=== PATIENT | female | born 1985 | race Two or more races ===

== ENCOUNTER 2020-09-23 05:02 | Inpatient (IN) | payer SELFPAY ==
[~2020-09-23] VITALS: Ht 154.9 cm; Wt 64.9 kg
[~2020-09-23 05:02] MED LIST: PREN-2 PO
[2020-09-23] MEDS ORDERED: IV RINGERS,LACTATED 1000ML 1,000 ML IV PRN (05:15)
[2020-09-23] MEDS ORDERED: ACETAMINOPHEN 325 MG TABLET. PO PRN ×2 (05:15→05:45)
[2020-09-23 05:36] LABS: BILIRUBIN,URINE NEGATIVE (NEG); CLARITY,URINE CLEAR; COLOR,URINE YELLOW; NITRITE,URINE NEGATIVE (NEG); PH,URINE 8.5 (<5.0-8.0); PROTEIN,URINE 30 mg/dL (NEG-TRACE)
[2020-09-23 05:42] LABS: BARBITURATES NEG (NEG); BENZODIAZEPINES NEG (NEG); CANNABINOIDS NEG (NEG); COCAINE NEG (NEG); METHADONE NEG (NEG); OPIATES NEG (NEG); PHENCYCLIDINE NEG (NEG)
[2020-09-23] MEDS ORDERED: BUTORPHANOL 2 MG/ML VIAL. IVP PRN ×2 (05:45)
[2020-09-23] MEDS ORDERED: TERBUTALINE 1 MG/ML VIAL. SQ PRN (05:45)
[2020-09-23] MEDS ORDERED: LIDOCAINE 1% PF 30 ML VIAL. INJ PRN (05:45)
[2020-09-23] MEDS ORDERED: OXYTOCIN 30 UNIT/500 ML PREMIX 500 ML IV PRN ×3 (05:45→13:30)
[2020-09-23] MEDS ORDERED: 0.9 % SODIUM CHLORIDE 10 ML DISP.SYRIN. IV PRN ×2 (05:45→13:30)
[2020-09-23 05:48] LABS: AMPHETAMINE/METHAMPHETAMINE NEG (NEG)
[2020-09-23] MEDS: IV RINGERS,LACTATED 1000ML 1,000 ML IV SCH ×3 (05:49→21:45)
[2020-09-23 05:51] LABS: BACTERIA,URINE FEW /HPF (0-FEW); RBC,URINE 0 /HPF (0-2)
[2020-09-23 06:33] LABS: BASO # 0.1 x10^3/uL (0.0-0.2); BASO % 1 % (0-3); EOS # 0.6 x10^3/uL (0.0-0.7); EOS % 8 % (0-3); HEMATOCRIT 38.4 % (36.0-47.0); HEMOGLOBIN 12.7 g/dL (12.0-15.5); LYMPH # 2.2 x10^3/uL (1.0-4.8); LYMPH % 29 % (24-48); MEAN CORPUSCULAR HEMOGLOBIN 30 pg (25-35); MEAN CORPUSCULAR HGB CONC 33 g/dL (31-37); MEAN CORPUSCULAR VOLUME 90 fL (79-100); MONO # 0.6 x10^3/uL (0.0-1.1); MONO % 8 % (0-9); NEUT # 4.3 x10^3/uL (1.8-7.7); NEUT % 55 % (31-73); PLATELET COUNT 269 x10^3/uL (140-400); RED BLOOD COUNT 4.27 x10^6/uL (3.50-5.40); RED CELL DISTRIBUTION WIDTH 14.1 % (11.5-14.5); WHITE BLOOD COUNT 7.8 x10^3/uL (4.0-11.0)
--- NOTE | 2020-09-23 07:51 | PDOC1 ---
PRACTICE DIRECTOR H&P Date of Admission: Date of Admission: Sep 23, 2020 at 05:02 History of Present Illness: EDC: 09/26/20 LMP: unk 35y @ 39.4 by 15wk u/s presents with ctxs. The pt presented dilated to 3 cm and regular ctxing. She was admitted for labor. Her cervical dilation has progressed to 4 cm on the latest exam. The pt signed a BTL consent on 08/28/20. The consent has not matured (less than 30 days). We have previously discussed performing the BTL after 6wks or alternatives like Mirena/Nexplanon. PMH: Denies PSH: Denies Meds: PNV, Fe All: Posaconazole, Moxeza, Ibuprofen OBHx: TSVD x 3 SH: no tob, no EtOH FH: noncontributory Medications: Meds: Current Medications Medications (Trade) Dose Ordered Sig/Tio Route PRN Reason Start Time Stop Time Status Last Admin Dose Admin Ringer's Solution 1,000 ml @ 125 mls/hr Q8H IV 09/23/20 05:45 09/23/20 06:21 Butorphanol Tartrate (Stadol) 1 mg PRN Q1HR PRN IVP mild to moderate labor pain 09/23/20 05:45 09/23/20 07:39 Allergies: Coded Allergies: ibuprofen (Verified Allergy, Intermediate, Hives, 02/15/16) moxifloxacin (Verified Allergy, Intermediate, 09/23/20) posaconazole (Verified Allergy, Intermediate, 09/23/20) Physical Exam: Vital Signs: Vital Signs Date Time Temp Pulse Resp B/P (MAP) Pulse Ox O2 Delivery O2 Flow Rate FiO2 09/23/20 07:39 20 97 PE: GENERAL: No apparent distress. Alert and oriented. HEENT: Head normocephalic, atraumatic. NECK: Supple LUNGS: Clear to auscultation. HEART: RRR, S1, S2 present, pulses intact ABDOMEN: Soft, positive bowel sounds. EXTREMITIES: No cyanosis or edema. NEUROLOGIC: Normal speech, normal tone PSYCHIATRIC: Normal affect, normal mood. SKIN: No ulceration. FHT: 150s +acels/no decels/mLTV [place]: 3 min SVE: 4/80/-3 Labs: Laboratory Tests Test 09/23/20 05:20 09/23/20 05:25 09/23/20 06:10 Urine Collection Type Unknown Urine Color Yellow Urine Clarity Clear Urine pH 8.5 (<5.0-8.0) Urine Specific [place] 1.015 (1.000-1.030) Urine Protein 30 mg/dL (NEG-TRACE) Urine Glucose (UA) Negative mg/dL (NEG) Urine Ketones (Stick) 40 mg/dL (NEG) Urine Blood Negative (NEG) Urine Nitrite Negative (NEG) Urine Bilirubin Negative (NEG) Urine Urobilinogen Dipstick 1.0 mg/dL (0.2 mg/dL) Urine Leukocyte Esterase Trace (NEG) Urine RBC 0 /HPF (0-2) Urine WBC 1-4 /HPF (0-4) Urine Squamous Epithelial Cells Mod /LPF Urine Bacteria Few /HPF (0-FEW) Urine Mucus Slight /LPF Urine Opiates Screen Neg (NEG) Urine Methadone Screen Neg (NEG) Urine Barbiturates Neg (NEG) Urine Phencyclidine Screen Neg (NEG) Urine Amphetamine/Methamphetamine Neg (NEG) Urine Benzodiazepines Screen Neg (NEG) Urine Cocaine Screen Neg (NEG) Urine Cannabinoids Screen Neg (NEG) Urine Ethyl Alcohol Neg (NEG) SARS-CoV-2 Antigen (Rapid) Negative (NEGATIVE) White Blood Count 7.8 x10^3/uL (4.0-11.0) Red Blood Count 4.27 x10^6/uL (3.50-5.40) Hemoglobin 12.7 g/dL (12.0-15.5) Hematocrit 38.4 % (36.0-47.0) Mean Corpuscular Volume 90 fL (79-100) Mean Corpuscular Hemoglobin 30 pg (25-35) Mean Corpuscular Hemoglobin Concent 33 g/dL (31-37) Red Cell Distribution Width 14.1 % (11.5-14.5) Platelet Count 269 x10^3/uL (140-400) Neutrophils (%) (Auto) 55 % (31-73) Lymphocytes (%) (Auto) 29 % (24-48) Monocytes (%) (Auto) 8 % (0-9) Eosinophils (%) (Auto) 8 % (0-3) H Basophils (%) (Auto) 1 % (0-3) Neutrophils # (Auto) 4.3 x10^3/uL (1.8-7.7) Lymphocytes # (Auto) 2.2 x10^3/uL (1.0-4.8) Monocytes # (Auto) 0.6 x10^3/uL (0.0-1.1) Eosinophils # (Auto) 0.6 x10^3/uL (0.0-0.7) Basophils # (Auto) 0.1 x10^3/uL (0.0-0.2) Laboratory Tests 09/23/20 06:10 Laboratory Tests 09/23/20 06:10 Assessment & Plan: A/P 35y @ 39.4 by 15wk u/s 1.) Active labor expectant management 2.) AMA - presented to [facility] too late for quad, declined indxn 3.) Late entry to care - although seen previously at an unknown clinic 4.) Gap in care b/t 04/04 to 07/23 5.) TDAP given 07/23/20 6.) GERD - advised to try Pepcid OTC 7.) Fetus cat I FHT 8.) GBS neg 9.) DPS - consent signed 09/04/20, considering an interval L/S BTL 6wks after delivery STU RAMIREZ MD Sep 23, 2020 07:51
[2020-09-23] MEDS ORDERED: OXYTOCIN PREMIX 30 UNIT/500 ML NS BAG. IV ONE (13:00)
[2020-09-23] MEDS ORDERED: HYDROCORTISONE 1% TOPICAL OINTMENT 30GM TUBE. TP PRN (13:30)
[2020-09-23] MEDS ORDERED: PHENYLEPH/MINERAL OIL/PETROLAT RECTAL OINTMENT TUBE. RC PRN (13:30)
[2020-09-23] MEDS ORDERED: ZOLPIDEM 5 MG TABLET. PO PRN (13:30)
[2020-09-23] MEDS ORDERED: diphenhydrAMINE HCL 25 MG CAPSULE PO PRN (13:30)
[2020-09-23] MEDS ORDERED: MAG HYDROX/ALUMINUM HYD/SIMETH 30 ML ORAL.SUSP PO PRN (13:30)
[2020-09-23] MEDS ORDERED: SIMETHICONE 80 MG TAB.CHEW PO PRN (13:30)
[2020-09-23] MEDS ORDERED: IBUPROFEN 400 MG TABLET. PO PRN (13:30)
[2020-09-23] MEDS ORDERED: MAGNESIUM HYDROXIDE 2,400 MG/30 ML ORAL.SUSP. PO PRN (13:30)
[2020-09-23] MEDS ORDERED: BENZOCAINE 20% TOPICAL AEROSOL SPRAY 57GM CAN. TP PRN (13:30)
[2020-09-23] MEDS ORDERED: DOCUSATE SODIUM 100 MG CAPSULE. PO PRN (13:30)
[2020-09-23] MEDS ORDERED: MMR per PROTOCOL. MC PRN (13:30)
[2020-09-23] MEDS ORDERED: TDaP (Adacel) per PROTOCOL. MC PRN (13:30)
--- NOTE | 2020-09-23 13:36 | PDOC ---
VAGINAL DELIVERY DATE DATE: 09/23/20 TIME: 13:34 TIME Patient delivered a viable male infant over intact perineum at 1229. Wt 7 lb 14 oz. Apgars 8/9. Placenta delivered spontaneously, intact with 3VC. 2nd degree laceration repaired in nml fashion with 2'0 vicryl. Good hemostasis noted. 20 U of Pit given with IVF. EBL 100cc. WEIGHT Weight [ ] STU RAMIREZ MD Sep 23, 2020 13:36
[2020-09-23] MEDS: ACETAMINOPHEN 325 MG TABLET. PO PRN (16:00)
[2020-09-23 17:44] VITALS: BP 110/77
[2020-09-23 18:17] VITALS: BP 113/76
[2020-09-23] MEDS ORDERED: IV NORMAL SALINE 1000ML BAG 1,000 ML IV SCH (19:30)
[2020-09-23 22:30] VITALS: BP 110/72
[2020-09-23] MEDS: oxyCODONE/APAP 5/325 1 TAB TABLET PO PRN (22:56)
[2020-09-24 03:25] VITALS: BP 114/72
[2020-09-24] MEDS: IV RINGERS,LACTATED 1000ML 1,000 ML IV SCH ×3 (05:45→21:45)
[2020-09-24] MEDS: oxyCODONE/APAP 5/325 1 TAB TABLET PO PRN ×2 (06:17→23:14)
[2020-09-24 06:50] VITALS: BP 131/81
[2020-09-24 07:49] LABS: HEMATOCRIT 38.8 % (36.0-47.0); HEMOGLOBIN 12.8 g/dL (12.0-15.5); RED BLOOD COUNT 4.29 x10^6/uL (3.50-5.40); RED CELL DISTRIBUTION WIDTH 14.2 % (11.5-14.5); WHITE BLOOD COUNT 9.8 x10^3/uL (4.0-11.0)
[2020-09-24] MEDS: FERROUS SULFATE 325 MG TABLET. PO SCH ×2 (08:00→17:00)
[2020-09-24 08:17] VITALS: BP 123/84
--- NOTE | 2020-09-24 10:49 | PDOC ---
CONTACT LENS MANUFACTURER PROGRESS NOTE Date of Service: DATE: 09/24/20 TIME: 10:49 Subjective: Pt with good pain control. Jenaro PO. Voiding. Minimal lochia Objective: Vital Signs: Vital Signs Date Time Temp Pulse Resp B/P (MAP) Pulse Ox O2 Delivery O2 Flow Rate FiO2 09/23/20 07:39 20 97 09/23/20 17:44 98.2 82 110/77 (88) 98.2 09/23/20 21:58 Room Air Vital Signs Date Time Temp Pulse Resp B/P (MAP) Pulse Ox O2 Delivery O2 Flow Rate FiO2 09/24/20 08:17 98.3 63 16 123/84 (97) 97 Room Air 98.3 Labs: Laboratory Tests Test 09/24/20 07:20 White Blood Count 9.8 x10^3/uL (4.0-11.0) Red Blood Count 4.29 x10^6/uL (3.50-5.40) Hemoglobin 12.8 g/dL (12.0-15.5) Hematocrit 38.8 % (36.0-47.0) Mean Corpuscular Volume 90 fL (79-100) Mean Corpuscular Hemoglobin 30 pg (25-35) Mean Corpuscular Hemoglobin Concent 33 g/dL (31-37) Red Cell Distribution Width 14.2 % (11.5-14.5) Platelet Count 295 x10^3/uL (140-400) Laboratory Tests 09/24/20 07:20 Laboratory Tests 09/24/20 07:20 Physical Exam: GENERAL: No apparent distress. Alert and oriented. HEENT: Head normocephalic, atraumatic. NECK: Supple LUNGS: Clear to auscultation. HEART: RRR, S1, S2 present, pulses intact ABDOMEN: Soft, positive bowel sounds. EXTREMITIES: No cyanosis or edema. NEUROLOGIC: Normal speech, normal tone PSYCHIATRIC: Normal affect, normal mood. SKIN: No ulceration. FFNT below umb No C/C/E Assessment & Plan: A/P 35y PPD #1 s/p 1.) PO doing well 2.) TDAP given 07/23/20 3.) GERD 4.) Hgb 12.7 -> 12.8 5.) Cont PP care 6.) DPS - consent signed 4/8/21, considering an interval L/S BTL 6wks after delivery STU RAMIREZ MD Sep 24, 2020 10:49
[2020-09-24] MEDS: ACETAMINOPHEN 325 MG TABLET. PO PRN (11:12)
[2020-09-24] MEDS: PRENATAL MULTIVITAMIN TABLET. PO SCH (11:12)
[2020-09-24 13:19] VITALS: BP 114/79
[2020-09-24 16:45] VITALS: BP 137/76
[2020-09-24 20:00] VITALS: BP 129/85
[2020-09-25 02:00] VITALS: BP 116/76
[2020-09-25] MEDS: IV RINGERS,LACTATED 1000ML 1,000 ML IV SCH (05:45)
[2020-09-25 08:00] VITALS: BP 113/80
[2020-09-25] MEDS: FERROUS SULFATE 325 MG TABLET. PO SCH (08:00)
[2020-09-25] MEDS ORDERED: DOCU-109 PO (09:08)
[2020-09-25] MEDS ORDERED: IBUP-1060 PO (09:08)
--- NOTE | 2020-09-25 09:42 | PDOC ---
SCREW MACHINE REPAIRER PROGRESS NOTE Date of Service: DATE: 09/25/20 TIME: 09:41 Subjective: Pt with good pain control. Jenaro PO. Voiding. Minimal lochia Objective: Vital Signs: Vital Signs Date Time Temp Pulse Resp B/P (MAP) Pulse Ox O2 Delivery O2 Flow Rate FiO2 09/24/20 08:16 Room Air 09/24/20 08:17 98.3 63 16 123/84 (97) 97 98.3 Vital Signs Date Time Temp Pulse Resp B/P (MAP) Pulse Ox O2 Delivery O2 Flow Rate FiO2 09/25/20 02:00 99.5 73 18 116/76 (89) 98 Room Air 99.5 Physical Exam: GENERAL: No apparent distress. Alert and oriented. HEENT: Head normocephalic, atraumatic. NECK: Supple LUNGS: Clear to auscultation. HEART: RRR, S1, S2 present, pulses intact ABDOMEN: Soft, positive bowel sounds. EXTREMITIES: No cyanosis or edema. NEUROLOGIC: Normal speech, normal tone PSYCHIATRIC: Normal affect, normal mood. SKIN: No ulceration. FFNT below umb No C/C/E Assessment & Plan: A/P 35y PPD #2 s/p 1.) PO doing well 2.) TDAP given 07/23/20 3.) GERD 4.) Hgb 12.7 -> 12.8 5.) D/c home 6.) DPS - consent signed 09/04/20, considering an interval L/S BTL 6wks after delivery STU RAMIREZ MD Sep 25, 2020 09:42
[2020-09-25] MEDS: ACETAMINOPHEN 325 MG TABLET. PO PRN (10:00)
[2020-09-25] MEDS: PRENATAL MULTIVITAMIN TABLET. PO SCH (10:00)
--- NOTE | 2020-09-25 11:14 | DS ---
ADMISSION DIAGNOSES: 1. Intrauterine at 39 weeks and 4 days by 15-week ultrasound. 2. Active labor. 3. Advanced maternal age. 4. Late entry to care. 5. Gap in care between April 04 to July 23. 6. Gastroesophageal reflux disease. 7. Desires permanent sterilization, but consent not matured. 8. GBS negative. DISCHARGE DIAGNOSES: 1. Intrauterine at 39 weeks and 4 days by 15-week ultrasound. 2. Active labor. 3. Advanced maternal age. 4. Late entry to care. 5. Gap in care between April 04 to July 23. 6. Gastroesophageal reflux disease. 7. Desires permanent sterilization, but consent not matured. 8. GBS negative. PROCEDURE: Spontaneous vaginal delivery. BRIEF HOSPITAL COURSE: The patient is a 35-year-old 4, para 3-0-0-3, who presented to labor and delivery at 39 weeks and 4 days by 15-week ultrasound with contractions. The patient is found to be 3 cm dilated and regular contractions. The patient was subsequently admitted. The patient progressed to 4 cm after some time. The patient ultimately delivered by vaginal delivery. See delivery note for full detail. By day #2, the patient was meeting all discharge criteria and was subsequently discharged home. Of note, the patient's hemoglobin on admission was 12.7 and after delivery was 12.8. The patient had signed a tubal consent on September 04, but did not mature past 30 days. In the office the patient discussed having an interval tubal performed six weeks after delivery. DISCHARGE INSTRUCTIONS: The patient was told not to lift anything greater than 20 pounds and to have pelvic rest for 6 weeks. CALL IF: The patient was to call if she had fevers, chills, nausea, vomiting, abdominal pain, or any additional questions or concerns. FOLLOWUP APPOINTMENT: The patient was to follow up on November 05 at 8 a.m. DISCHARGE MEDICATIONS: The patient was given a prescription for Tylenol 325 mg 30 pills and Colace [address] mg [address]: Joaquín TID: [id number] MTDD
[2020-09-25] MEDS ORDERED: ACET325T9 PO (11:31)
[2020-09-25 13:20] VITALS: BP 121/84
--- NOTE | 2020-09-25 13:50 | NUR ---
pt. discharges at this time, with FOB accompanying as well as belongings, infant with mother upon discharge, vss
--- NOTE | 2020-09-29 11:07 | PATHOLOGY ---
[facility] Accession Number: [id number] . 01 Material submitted: . placenta - PLACENTA . 01 Clinical history: . ADVANCED MATERNAL AGE VAGINAL DELIVERY GROSS AND MICROSCOPIC SEE DELIVERY ROOM REQ . 02 Diagnosis: Placenta, vaginal delivery: - Mature choi placenta weighing 525 grams. - Three-vessel umbilical cord with paracentral insertion into the chorionic plate. - Meconium staining of membranes. - Recent retromembranous hematoma. - Acute deciduitis with focal decidual necrosis. - Villous edema, focal. - Increased number of nucleated red blood cells within vascular space. . (MLK:robert; 09/26/2020) [facility] 09/29/2020 1032 Local . 02 Electronically signed: . Roxi Moreno MD, Pathologist NPI- [id number] . 01 Gross description: . Fixative: Formalin Labeled: Placenta Specimen received: An intact choi discoid placenta with attached umbilical cord Dimensions: 22.0 x 20.0 x 1.5 cm cm membranes appearance: [place] to green (slight meconium) with prominent vessels and little to no subchorionic plaque membrane rupture: 3.0 cm from placental disc membrane insertion: Normal Umbilical cord: 26.5 cm in length, 1.0-1.2 cm in diameter Umbilical cord insertion: Paracentral, 6.5 cm from the closest placental margin Number of umbilical vessels: Trivascular Umbilical cord appearance: White-yellow with one twists Trimmed placental weight: 525 g surface: [place] to greenish (slight meconium) with prominent vessels and little to no subchorionic plaque Maternal surface: Intact [place] with 10% loose and adherent clotted blood Abnormalities: Beefy-red parenchyma with no grossly apparent lesions . . Promotions Coordinator sections are submitted as follows: A1 proximal and distal umbilical cord A2 membranes, rolled A3 pharmaceutical representative peripheral placenta A4 pharmaceutical representative central placenta A5 additional maternal surface A6 surface adjacent to umbilical cord insertion site (BLJ; 09/24/2020) BLJ/BLJ 09/24/2020 1722 Local . 02 Pathologist provided ICD-10: O43.893, O77.0, Z37.0, Z3A.39 . 02 CPT . 677199 Specimen Comment: A courtesy copy of this report has been sent to [phone] Performed at: [facility] [address] [place] [address] [id number] MD Miguelangel Esquivel MD Phone: [phone] Performed at: [address] [id number] MD Temo Cid MD Phone: [phone]
== END 2020-09-25 13:50 | disposition home or self-care (01) | DRG 807 ==
LOC: OBSVTOIN 05:02 → 3 SO LND 05:02
PROVIDERS: ADMIT Obstetrics & Gynecology; ATTEND Obstetrics & Gynecology
PROC: 10E0XZZ Delivery of Products of Conception, External Approach (ICD-10-PCS; principal; 2020-09-23)
PROC: 0KQM0ZZ Repair Perineum Muscle, Open Approach (ICD-10-PCS; 2020-09-23)
DX: O99.62 Diseases of the digestive system complicating childbirth (principal); Z37.0 Single live birth; K21.9 Gastro-esophageal reflux disease without esophagitis; Z3A.39 39 weeks gestation of pregnancy; Z20.822 Contact with and (suspected) exposure to COVID-19; O70.1 Second degree perineal laceration during delivery
CPT/HCPCS: 36415; 80307; 81001; 85025; 85027; 86592; 86850; 86900; 86901; 87086; 87426; 88307; J0595; J2590; J7120; U0003; U0005; G0378